=== PATIENT | male | born 1950 | race Caucasian/White ===

== ENCOUNTER 2016-07-24 07:31 | Inpatient (IN) ==
[2016-07-24 08:12] LABS: Basophils % 0.4 %; Eosinophils # 0.3 K/mcL (0.0-0.6); Eosinophils % 2.9 %; Hematocrit 40.3 % (37.5-50.1); Hemoglobin 13.4 g/dL (12.9-16.9); Immature Granulocytes % 0.4 % (0-4); Lymphocytes # 1.9 K/mcL (0.6-4.6); Lymphocytes % 17.8 %; Mean Corpuscular HGB Conc 33.3 g/dL (31.6-35.5); Mean Corpuscular Hemoglobin 28.2 pg (28.0-33.3); Mean Corpuscular Volume 84.7 fL (83.0-100.0); Mean Platelet Volume 9.9 fL (9.4-12.4); Monocytes # 0.8 K/mcL (0.0-1.3); Monocytes % 7.1 %; Neutrophils # 7.6 K/mcL (1.6-8.9); Platelet Count 204 K/mcL (140-400); Red Blood Count 4.76 M/mcL (4.19-5.50); Red Cell Distribution Width 13.6 % (11.5-14.5); Segmented Neutrophils % 71.4 %
[2016-07-24 08:27] LABS: BUN/Creatinine Ratio 15 (6-26); Blood Urea Nitrogen 18 mg/dL (8-26); Calcium 9.3 mg/dL (8.6-10.8); Carbon Dioxide 27 mEq/L (19-29); Chloride 98 mEq/L (98-109); Glucose 236 mg/dL (70-99); Osmolality,Calculated 290 (280-300); Potassium 4.4 mEq/L (3.5-4.5); Sodium 135 mEq/L (136-145); eGFR For African Americans > 60 (> 60); eGFR For Non-African Americans > 60 (> 60)
--- NOTE | 2016-07-24 08:38 | Emergency Department Note ---
START Narrative - START START: I examined this patient and my medical decision-making was reviewed with the CREAM DUMPER/PA/Advanced Practice Nurse/Resident Physician. I agree with the documented findings, disposition and treatment plan as described except to the extent set forth below. ED attending note: Patient seen with emergency medicine resident Dr. Sagastume. Please see a copy of his note for details of the H&P, evaluation, management and disposition of this patient. We independently had [id number] contact with the patient Briefly: A 66-year-old male increasing swelling of his legs and dyspnea on exertion left-sided chest pain and pressure. His HEART score, is at least 5 without a troponin back yet. EKG nonspecific changes chest is clear cardiac arrest some regular rate and rhythm his 2+ pitting edema. Patient will get labs including a troponin. Chest x-ray read by radiology as no acute process. Patient will likely be admitted for chest pain rule out acute coronary syndrome. 30 minutes critical care service this patient. Disposition pending.
--- NOTE | 2016-07-24 08:44 | Emergency Department Note ---
Disposition Clinical Impression: Shortness of breath, Weight gain Chest pain Qualifiers: Chest pain type: unspecified Qualified Code(s): R07.9 - Chest pain, unspecified Disposition: Admitted As Inpatient Condition: Good Referrals: Memo Tovar DO [Primary Care Provider] - Forms: ED Satisfaction Letter Time of Disposition: 10:15 General Adult HPI - General Chief complaint: ED Shortness of Breath/Dyspnea Stated complaint: Chest Pains/SOB/lumbar pain Time Seen by Provider: 07/24/16 07:46 Source: patient Limitations: no limitations Nursing Notes Reviewed: Yes Vital Signs Reviewed: Yes - History of Present Illness HPI Narrative: The patient presents to emergency department with chest pain that began last night. He is also stating that he has a 50 pound weight gain over the past 4 months. He states he notices it in his abdomen and his legs. He does have pitting edema to his knees. Started having shortness of breath yesterday and then start having chest pain last night. States this morning he woke up he was having chest pain and shortness of breath as well, warm second emergency department. Chest pain as an ache on the left side of his chest. Does have history of CABG. Pain Scale: 5 - Related Data Home Medications Medication Instructions Recorded Confirmed Aspirin/Dipyridamole 25/200 MG 1 cap PO TID 02/10/16 07/24/16 [Aggrenox 25mg-200mg] Docusate Sodium [Dok] 100 mg PO DAILY PRN 02/10/16 07/24/16 Gabapentin [Neurontin] 600 mg PO TID 02/10/16 07/24/16 Isosorbide MONOnitrate (24 HR) 30 mg PO DAILY 02/10/16 07/24/16 [Imdur] Metformin [Glucophage] 500 mg PO BIDWM 02/10/16 07/24/16 Metoprolol XL (24 HR) Succ [Toprol 25 mg PO DAILY 02/10/16 07/24/16 XL] Aspirin 81 mg PO DAILY 07/24/16 07/24/16 Atorvastatin [Lipitor] 40 mg PO HS 07/24/16 07/24/16 Budesonide/Formoterol 160/4.5 2 puff IH BIDR 07/24/16 07/24/16 [Symbicort 160/4.5] Diclofenac Sodium [Voltaren] 1 appl TP QID 07/24/16 07/24/16 Insulin Degludec [Tresiba 35 unit SQ DAILY 07/24/16 07/24/16 Flextouch U-100] Oxybutynin [Ditropan] 5 mg PO BID 07/24/16 07/24/16 Previous Rx's Medication Instructions Recorded HYDROcodone/Acet 5/325 mg [[place] 1 tab PO Q6H PRN #28 tab 02/10/16 5-325 mg] Allergies Allergy/AdvReac Type Severity Reaction Status Date / Time No Known Allergies Allergy Verified 02/10/16 07:55 All systems ED: reviewed and negative except as stated. Constitutional: Reports: chills (assosciated with chest pain). Denies: fever ENT ED: Denies: ear pain, throat pain Cardiovascular: Reports: chest pain (Began last night.), edema (2 bilateral lower legs.). Denies: palpitations, syncope Respiratory: Reports: dyspnea (For several days has gotten significantly worse since last night.). Denies: cough Gastrointestinal: Denies: abdominal pain, nausea, vomiting, diarrhea, hematemesis, melena, hematochezia Genitourinary: Denies: urgency, dysuria, frequency, hematuria Musculoskeletal: Denies: back pain, neck pain Integumentary: Denies: rash Neurological: Denies: headache, weakness Past Medical History - Past Medical History Attestation: Yes The following information was validated with the patient. Medical history: Reports: diabetes, hyperlipidemia, hypertension Psychiatric history: Reports: depression - Social History Smoking Status: Never smoker Smokeless Tobacco Status: No Alcohol use: Reports: none Drug use: Reports: none Physical Exam - General Limitations: no limitations General appearance: alert, in no apparent distress - Head Head exam: atraumatic, normocephalic - Eye Eye exam: Present: normal appearance, PERRL, EOMI. Absent: scleral icterus - ENT ENT exam: normal exam, normal oropharynx, mucous membranes moist - Neck Neck exam: Present: normal inspection, full ROM, trachea midline. Absent: tenderness, meningismus, lymphadenopathy - Chest Chest inspection: Present: normal inspection, symmetric chest wall rise. Absent : tenderness - Respiratory Respiratory exam: Present: normal lung sounds bilaterally. Absent: respiratory distress - Cardiovascular Cardiovascular exam: Present: regular rate, normal rhythm, normal heart sounds - Abdominal Exam Abdominal exam: Present: soft, Non-Tender, normal bowel sounds. Absent: rigidity, organomegaly, Soria's sign, Rovsing's sign, tenderness at McBurney's Point - Extremities Exam Extremities exam: Present: normal inspection, full ROM, normal capillary refill , pedal edema (Extending up to knees bilaterally..). Absent: tenderness, calf tenderness - Back Exam Back exam: Present: normal inspection, full ROM. Absent: tenderness, CVA tenderness (R), CVA tenderness (L) - Neurological Exam Neurological exam: Present: alert, oriented X3 - Psychiatric Psychiatric exam: Present: normal affect, normal mood - Skin Skin exam: Present: warm, dry, intact, normal color. Absent: rash, cyanosis, diaphoresis Course Course Narrative: Obese male patient presents the emergency department with a complaint of chest pain and shortness of breath. Patient is not appearing to be in any significant distress at this time. Patient states that his shortness of breath started yesterday during the day he attempted a warm shower with no relief. Later in the evening he started developing a left-sided aching chest pain. He denies any radiation. He denies any nausea or diarrhea but does have associated chills with this. Does have a history of a CABG in 2008. Patient states he sat a 50 pound weight gain over the past 4 months. He states that his blood sugars have recently been not under control. He states he had them under control for several months however the doctor changed him to a oral medication from Lantus and now he is ranging in the over 200s area. Patient has a significant cardiac history and concerning chest pain symptomology here. His labwork is grossly unremarkable with a slightly elevated BNP. His lung sounds are clear heart tones are normal. He drops into the low 80s on room air so we placed him on 2 L of oxygen. He does not generally wear oxygen. I am concerned for a new CHF versus a cardiac event. We will admit patient to the hospital. He is agreeable to this plan. - Consultations Consultation #1: Dr. Espinoza accepted patient in stable condition. Time: 09:36 Vital Signs Temperature 98.1 F 07/24/16 07:35 Pulse Rate 71 07/24/16 07:35 Respiratory Rate 16 07/24/16 07:35 Blood Pressure 176/94 07/24/16 07:35 O2 Sat by Pulse Oximetry 98 07/24/16 07:35 Temperature 98.1 F 07/24/16 07:35 Pulse Rate 92 07/24/16 10:30 Respiratory Rate 18 07/24/16 10:30 Blood Pressure 165/90 07/24/16 10:30 O2 Sat by Pulse Oximetry 95 07/24/16 10:30 Oxygen Delivery Oxygen Delivery Room Air Medical Decision Making - Medical Records Medical records reviewed: Yes I reviewed the patient's medical records. - Lab Data Lab results reviewed: Yes I reviewed the patient's lab results. Result diagrams: 07/24/16 08:06 07/24/16 08:06 Lab Results 07/24/16 07/24/16 07/24/16 Range/Units 08:06 08:06 08:06 WBC 10.7 (4.3-11.1) K/mcL RBC 4.76 (4.19-5.50) M/mcL Hgb 13.4 (12.9-16.9) g/dL Hct 40.3 (37.5-50.1) % MCV 84.7 (83.0-100.0) fL MCH 28.2 (28.0-33.3) pg MCHC 33.3 (31.6-35.5) g/dL RDW 13.6 (11.5-14.5) % Plt Count 204 (140-400) K/mcL MPV 9.9 (9.4-12.4) fL Immature Gran % 0.4 (0-4) % Seg Neutrophils % 71.4 % Lymphocytes % 17.8 % Monocytes % 7.1 % Eosinophils % 2.9 % Basophils % 0.4 % Neutrophils # 7.6 (1.6-8.9) K/mcL Lymphocytes # 1.9 (0.6-4.6) K/mcL Monocytes # 0.8 (0.0-1.3) K/mcL Eosinophils # 0.3 (0.0-0.6) K/mcL Basophils # 0.0 (0.0-0.2) K/mcL Sodium 135 L (136-145) mEq/L Potassium 4.4 (3.5-4.5) mEq/L Chloride 98 (98-109) mEq/L Carbon Dioxide 27 (19-29) mEq/L BUN 18 (8-26) mg/dL Creatinine 1.18 (0.72-1.25) mg/dL Est GFR ( Amer) > 60 (> 60) Est GFR (Non-Af Amer) > 60 (> 60) BUN/Creatinine Ratio 15 (6-26) Glucose 236 H (70-99) mg/dL Calculated Osmolality 290 (280-300) Calcium 9.3 (8.6-10.8) mg/dL Troponin I 0.01 (0-0.03) ng/mL B-Natriuretic Peptide (0-100) pg/mL 07/24/16 Range/Units 08:06 WBC (4.3-11.1) K/mcL RBC (4.19-5.50) M/mcL Hgb (12.9-16.9) g/dL Hct (37.5-50.1) % MCV (83.0-100.0) fL MCH (28.0-33.3) pg MCHC (31.6-35.5) g/dL RDW (11.5-14.5) % Plt Count (140-400) K/mcL MPV (9.4-12.4) fL Immature Gran % (0-4) % Seg Neutrophils % % Lymphocytes % % Monocytes % % Eosinophils % % Basophils % % Neutrophils # (1.6-8.9) K/mcL Lymphocytes # (0.6-4.6) K/mcL Monocytes # (0.0-1.3) K/mcL Eosinophils # (0.0-0.6) K/mcL Basophils # (0.0-0.2) K/mcL Sodium (136-145) mEq/L Potassium (3.5-4.5) mEq/L Chloride (98-109) mEq/L Carbon Dioxide (19-29) mEq/L BUN (8-26) mg/dL Creatinine (0.72-1.25) mg/dL Est GFR ( Amer) (> 60) Est GFR (Non-Af Amer) (> 60) BUN/Creatinine Ratio (6-26) Glucose (70-99) mg/dL Calculated Osmolality (280-300) Calcium (8.6-10.8) mg/dL Troponin I (0-0.03) ng/mL B-Natriuretic Peptide 318 H (0-100) pg/mL - Radiology Data Radiology results reviewed: Yes I reviewed the patient's radiology results. Chest X-Ray 07/24/16 07:47 IMPRESSION: No evidence of acute disease. D/ / Garry Andersen MD / Garry Andersen MD Interpreting Provider: Garry Andersen MD - EKG Data EKG #1 EKG attestation: Yes I reviewed and interpreted this EKG. EKG results narrative: Normal sinus rhythm at a rate of 68. ME interval is 185. Her station is 145. QT is 412. QTC is 429. Right bundle branch block. No signs of acute ischemia. No change from previous EKG dated 02/03/2016. Heart Score - Score History: Moderately Suspicious EKG: Non Specific repolarisation Disturbance Age: 45-65 Risk Factors: Equal/Greater than 3 risk factor or history of atherosclerotic disease Troponin: Less than normal limit HEART Score Total: 5
[2016-07-24] MEDS ORDERED: Furosemide 40 MG/4 ML VIAL IVP ONE (09:58)
--- NOTE | 2016-07-24 10:05 | Event Note ---
Date of Encounter: 07/24/16 Time of Encounter: 10:00 Patient seen and examined with nurse practitioner. 66-year-old male with a history of cabg in 2008 presents to the emergency room with shortness of breath and chest pain. Patient is an acute congestive heart failure. He is not on oxygen at home. Will start Lasix 40 mg IV twice daily. strict intake and output. He notices some pain in the left thigh and increased girth of left Lower extremity compared to right, so Venous Doppler will be performed to rule out DVT. He also has left pectoral chest pain. EKG shows right bundle branch block, no st segment shifts. Serial cardiac markers. Continuous telemetry monitoring. Continue home regimen for diabetes. A1 C in a.m. Patient this full code. inpatient admission.
[2016-07-24] MEDS ORDERED: Naloxone 0.4 MG/ML INJ IVP PRN (10:41)
--- NOTE | 2016-07-24 11:35 | Internal Med History&Physical ---
Date of Encounter: 07/24/16 Time of Encounter: 10:30 Assessment and Plan (1) Chest pain Current visit: Yes Status: Acute Assess: Patient presents with chest pain episodes x2 that was centered in left chest and non-radiating. Patient reports pain as pressure that lasted 2-3 minutes each time when lying down. Patient reports also becoming SOB during this episodes and continuing afterwards. Plan: Continuous cardiac monitoring ordered Repeat EKGs Continue aspirin Continue Aggrenox Continue Lipitor Continue Isosorbide Continue Metoprolol Trending troponins EV Echo ordered Cardiology consult ordered and confirmed with Dr. Bryant [place] precautions ordered Qualifiers: Chest pain type: unspecified Qualified Code(s): R07.9 - Chest pain, unspecified (2) Shortness of breath Current visit: Yes Status: Acute Assess: Patient presents with shortness of breath from probable CHF. Patient has 3+ pitting pedal edema bilaterally. Crackles in patient's lungs bilaterally in lower lobes. Plan: 40 mg Lasix IVP given in ED 40 mg Lasix IVP daily ordered Continue Symbicort Measure I & O daily Measure weight daily O2 2L ordered with titration if SpO2 <92% Monitor vital signs [place] precautions ordered (3) Weight gain Current visit: Yes Status: Acute Assess: Patient presents with unintended weight gain related to fluid overload from probable CHF. Patient has 3+ pitting pedal edema bilaterally. Crackles in patient's lungs bilaterally in lower lobes. Plan: 40 mg Lasix IVP given in ED 40 mg Lasix IVP daily ordered Measure I & O daily Measure weight daily (4) Hypertension Current visit: Yes Status: Acute Assess: Patient presents with history of chronic hypertension. Patient states that he does not have a way to check BP at home. Will have SW look into this. Plan: Continue Metoprolol Continue Lipitor Monitor BP and vitals Qualifiers: Hypertension type: essential hypertension Qualified Code(s): I10 - Essential (primary) hypertension (5) Hyperlipidemia Current visit: Yes Status: Acute Assess: Patient presents with history of chronic hyperlidemia. Plan: Continue Lipitor Lipid panel ordered Repeat labs ordered Qualifiers: Hyperlipidemia type: unspecified Qualified Code(s): E78.5 - Hyperlipidemia , unspecified (6) DVT prophylaxis Current visit: Yes Status: Acute Assess: Patient placed on DVT prophylaxis due to current chief complaint of chest pain, obesity, and sedentary nature related to shortness of breath. Plan: DVT prophylaxis ordered with 5000 units of heparin subcutaneous every 8 hours Monitor patient's vitals Internal Medicine - H&P: HPI Chief complaint: Chest pain, SOB Admitted From: Emergency Dept Plans for Post Hospital Care: Home History of present illness: Mr. Cooper is a 66 year old male who presents from the ED with chief complaint of chest pain and SOB. Mr. Cooper reports pain began last night with two episodes that lasted several minutes each time and was non-radiating pressure in his right chest. SOB accompanied these episodes and he continues to have the dyspnea. Patient has a history of quadruple bypass in 2008. Patient reports he has never had chest pain before this. Mr. Cooper also reports a 50 pound weight increase over the past 4 months. BNP was 318 on admission to ED. Patient has history of HTN, hyperlipidemia, and DM. She reports having carotid endarterectomy in 2008 to the right carotid. DM is managed with Metformin and Tresiba. Patient states blood glucose is not well-controlled since his physician switched him from Lantus to Tresiba. Lungs clear bilaterally and heart tones normal on exam. Patient to be admitted as inpatient. Cardiology consult ordered and confirmed with Dr. Bryant. Past Med Surg Social Fam HX - Past Medical History Source: patient Medical history: diabetes, hyperlipidemia, hypertension Psychiatric history: depression - Past Surgical History Surgical History: carotid endarterectomy (Right in 2008), coronary bypass (CABG ) (Quadruple), other (Amputation of left great toe due to DM in 06/2015; Right knee replacement in 2012) - Social History Smoking Status: Never smoker Smokeless Tobacco Status: No (Used chewing tobacco until 2008) Alcohol use: none Drug use: none Occupational status: retired Current living situation: Home Activity Level: Uses cane/walker Recent Out of Country Travel Within the Last 8 Weeks: No Exposure or Possible Exposure to Illness During Travel: No - Family History Father Living Status: Cause of : [place] Hx Family Cardiac Disorders: Yes Mother Living Status: Cause of : Cardiac related Hx Family Cardiac Disorders: Yes Daughter Brother Hx Family Cardiac Disorders: Yes (CaRD STENT) Internal Medicine - H&P: Meds Aspirin/Dipyridamole 25/200 MG [Aggrenox 25mg-200mg] 1 cap PO TID 02/10/16 [ History] Docusate Sodium [Dok] 100 mg PO DAILY PRN 02/10/16 [History] Gabapentin [Neurontin] 600 mg PO TID 02/10/16 [History] HYDROcodone/Acet 5/325 mg [[place] 5-325 mg] 1 tab PO Q6H PRN #28 tab 02/10/16 [Rx ] Isosorbide MONOnitrate (24 HR) [Imdur] 30 mg PO DAILY 02/10/16 [History] Metformin [Glucophage] 500 mg PO BIDWM 02/10/16 [History] Metoprolol XL (24 HR) Succ [Toprol XL] 25 mg PO DAILY 02/10/16 [History] Aspirin 81 mg PO DAILY 07/24/16 [History] Atorvastatin [Lipitor] 40 mg PO HS 07/24/16 [History] Budesonide/Formoterol 160/4.5 [Symbicort 160/4.5] 2 puff IH BIDR 07/24/16 [ History] Diclofenac Sodium [Voltaren] 1 appl TP QID 07/24/16 [History] Insulin Degludec [Tresiba Flextouch U-100] 35 unit SQ DAILY 07/24/16 [History] Oxybutynin [Ditropan] 5 mg PO BID 07/24/16 [History] Allergies No Known Allergies Allergy (Verified 02/10/16 07:55) All Systems PM: A 10-system review of systems was performed and is negative for pertinent findings except as documented above in the HPI. - Constitutional Constitutional: as per HPI, falls, weight gain Additional comments: Patient reports history of repeated falls over the past 9 months. Patient states that his "legs go out from under him". He states the numerous scabbed wounds are results of his falls. Patient also reports he has gained 50 pounds over the past 4 months for no reason. - EENT Eyes: as per HPI, change in vision, no discharge, no pain, no photophobia Additional comments: Patient states that he has had recent changes in vision that he is seeing a provider for. Ears: no ear discharge, no ear pain, no tinnitus Nose, mouth and throat: no dysphagia, no nasal discharge, no neck pain, no sore throat - Breasts Breasts: as per HPI - Cardiovascular Cardiovascular ROS IM: as per HPI, chest pain, dyspnea, no diaphoresis, no lightheadedness, no palpitations, no syncope - Respiratory Respiratory: as per HPI, dyspnea - Gastrointestinal Gastrointestinal: no abdominal pain, no diarrhea, no hematemesis, no hematochezia, no melena, no nausea, no vomiting - Genitourinary Genitourinary ROS male: as per HPI, urinary hesitancy Additional comments: Patient reports episodes of urinary frequency. He states he is seeing a provider for this who placed him on Oxybutinin. - Musculoskeletal Musculoskeletal ROS IM: as per HPI Additional comments: Patient states that he has been experiencing lower back pain and pain in his upper left thigh that he thought may be due to his sciatica. - Integumentary Integumentary IM: no rash, no unusual bruising - Neurological Neurological ROS: as per HPI, frequent falls - Psychiatric Psychiatric: as per HPI, abnormal sleep pattern Additional comments: Patient reports he wakes from sleep 5-6 times per night, sometimes due to need to urinate. - Endocrine Endocrine IM: as per HPI, polyuria Additional comments: Patient reports episodes of polyuria. - Hematologic/Lymphatic Hematologic/Lymphatic: no easy bruising - Allergic/Immunologic Allergic/Immunologic: as per HPI - Constitutional Vitals: Temp Pulse Resp BP Pulse Ox 98.1 F 92 18 165/90 95 07/24/16 07:35 07/24/16 10:30 07/24/16 10:30 07/24/16 10:30 07/24/16 10:30 General appearance: Present: cooperative, A&O X 3, pleasant, no acute distress, obese, answers questions appropriately - Head Head exam: Present: atraumatic, normocephalic - Eye Eye exam: Present: PERRL, conjuntiva pink, sclera anicteric Pupils: Present: PERRL - ENT ENT exam: Present: normal exam, normal external ear exam - Neck Neck exam general surgery: Present: supple, trachea midline. Absent: lymphadenopathy - Respiratory Respiratory exam: Present: CTAB. Absent: accessory muscle use, rales, rhonchi, wheezes - Cardiovascular Cardiovascular exam: Present: RRR, +S1, +S2. Absent: diastolic murmur, gallop, rubs, systolic murmur - GI/Abdominal GI/Abdominal exam: Present: normal bowel sounds, soft, no peritoneal signs. Absent: distended, tenderness - Rectal Rectal exam: Present: deferred - Additional comments: exam deferred. - Extremities Exam Extremities exam: Present: normal capillary refill, pedal edema, warm, radial pulses palpable and symetrical Additional comments: Patient reports pain in leg thigh as well as lower back pain on left side. - Back Exam Back exam: Present: normal inspection - Neurological Exam Neurological exam: Present: CN II-XII intact, oriented X3, no focal deficits. Absent: pronater drift, facial droop, speech deficit - Psychiatric Psychiatric exam: Present: normal affect, normal mood - Skin Skin exam: Present: abrasion, dry Additional comments: Patient's skin is dry and intact for the most part with the exception of scabbed abrasions resulting from frequent falls. Internal Med - H&P Results - Labs CBC & Chem 7: 07/24/16 08:06 07/24/16 08:06 Labs: Short CBC 07/24/16 Range/Units 08:06 WBC 10.7 (4.3-11.1) K/mcL Hgb 13.4 (12.9-16.9) g/dL Hct 40.3 (37.5-50.1) % Plt Count 204 (140-400) K/mcL Neutrophils # 7.6 (1.6-8.9) K/mcL BMP 07/24/16 08:06 Sodium 135 L Potassium 4.4 Chloride 98 Carbon Dioxide 27 BUN 18 Creatinine 1.18 Glucose 236 H Calcium 9.3 Cardiac Enzymes 07/24/16 Range/Units 08:06 Troponin I 0.01 (0-0.03) ng/mL - EKG Data EKG shows normal: sinus rhythm - EKG Data When compared to previous EKG: there is no significant change EKG comments: 07/24/16 11:52 EKG dated 02/03/16 shows sinus rhythm with right bundle branch block. EKG dated 07/24/16 shows sinus rhythm with right bundle branch block. - Impressions ITS Impressions Chest X-Ray 07/24/16 07:47 IMPRESSION: No evidence of acute disease. D/ / Garry Andersen MD / Garry Andersen MD Interpreting Provider: Garry Andersen MD - Diagnostic Studies Chest x-ray Additional comments: 2-View CXR dated 07/24/16 shows heart size and mediastinal contours are unchanged. Lungs are clear. No focal consolidation. There is no pleural effusion. There is ossification of the anterior longitudinal ligament. No evidence of acute disease.
[2016-07-24] MEDS: (Diclofenac Sodium [Voltaren] 1 APPL) TP SCH ×3 (13:09→21:07)
[2016-07-24] MEDS: *HR* HYDROcodone/Acet 5/325 mg TABLET PO PRN ×2 (15:05→21:28)
[2016-07-24] MEDS: *HR* Heparin 5,000 UNIT/ML VIAL SQ SCH ×2 (15:05→21:07)
[2016-07-24] MEDS: Gabapentin 300 MG CAPSULE PO SCH ×2 (15:05→21:08)
[2016-07-24] MEDS ORDERED: D5% in Water 1,000 ML IVC PRN ×2 (16:05→16:27)
[2016-07-24] MEDS ORDERED: *HR* Dextrose 50 % in Water (Syg) 50 ML SYRINGE IVP PRN ×2 (16:05→16:27)
[2016-07-24] MEDS ORDERED: Dextrose Gel 15 GM PO PRN ×4 (16:05→16:27)
[2016-07-24] MEDS: Insulin LISPRO 300 UNITS/3 ML VIAL SQ SCH ×2 (17:14→21:29)
--- NOTE | 2016-07-24 19:56 | Electrocardiograph Report ---
[address] [address] Test Date: 2016-07-24 Pat Name: Mario Cooper Department: 104 Room: 3B16 Gender: M Public Relations Representative: : 1950 Requested By: Sajan Groves Order Number: [id number] Reading MD: Robert Granados MD Measurements Intervals [place] Rate: 68 P: 23 ID: [id number] QRS: 80 QRSD: 145 T: 31 QT: 412 QTc: 429 Interpretive Statements SINUS RHYTHM RIGHT BUNDLE BRANCH BLOCK Electronically Signed On 07-24-2016 19:54:25 EDT by Robert Granados MD
[2016-07-24] MEDS ORDERED: Perflutren Lipid Microsphere 1.3 ML in 0.9 % Sodium Chloride 8.7 ML IVP ONE (20:50)
[2016-07-24] MEDS ORDERED: Insulin DETEMIR 100 UNIT/ML X5UNITS SQ SCH ×2 (21:00)
[2016-07-24] MEDS: Furosemide 40 MG/4 ML VIAL IVP SCH (21:07)
[2016-07-24] MEDS: Budesonide/Formoterol 160/4.5 MDI IH SCH (22:09)
[2016-07-25 02:03] LABS: Basophils % 0.4 %; Eosinophils # 0.3 K/mcL (0.0-0.6); Hematocrit 38.1 % (37.5-50.1); Hemoglobin 12.8 g/dL (12.9-16.9); Immature Granulocytes % 0.4 % (0-4); Lymphocytes # 1.8 K/mcL (0.6-4.6); Lymphocytes % 17.2 %; Mean Corpuscular HGB Conc 33.6 g/dL (31.6-35.5); Mean Corpuscular Hemoglobin 28.6 pg (28.0-33.3); Mean Corpuscular Volume 85.2 fL (83.0-100.0); Mean Platelet Volume 10.4 fL (9.4-12.4); Monocytes # 0.8 K/mcL (0.0-1.3); Monocytes % 7.7 %; Neutrophils # 7.5 K/mcL (1.6-8.9); Platelet Count 214 K/mcL (140-400); Red Blood Count 4.47 M/mcL (4.19-5.50); Red Cell Distribution Width 13.9 % (11.5-14.5); Segmented Neutrophils % 71.3 %
[2016-07-25 02:24] LABS: Alanine Aminotransferase 12 Units/L (0-55); Albumin 3.2 g/dL (3.5-5.0); Albumin/Globulin Ratio 0.8 (1.1-2.2); Alkaline Phosphatase 96 Units/L (38-126); Aspartate Amino Transferase 13 Units/L (5-34); BUN/Creatinine Ratio 18 (6-26); Bilirubin,Total 0.7 mg/dL (0.2-1.2); Blood Urea Nitrogen 20 mg/dL (8-26); Calcium 9.1 mg/dL (8.6-10.8); Carbon Dioxide 30 mEq/L (19-29); Chloride 95 mEq/L (98-109); Chol/HDL Ratio 6.7 (0-4.9); Cholesterol 182 mg/dL (< 200); Globulin 4.2 g/dL (2.4-3.5); Glucose 180 mg/dL (70-99); HDL Cholesterol 27 mg/dL (40-59); LDL Cholesterol,Calculated 122 mg/dL (0-99); Magnesium 1.6 mg/dL (1.6-2.6); Osmolality,Calculated 289 (280-300); Potassium 3.5 mEq/L (3.5-4.5); Sodium 136 mEq/L (136-145); Total Protein 7.4 g/dL (6.0-8.3); Triglycerides 165 mg/dL (< 150); eGFR For African Americans > 60 (> 60); eGFR For Non-African Americans > 60 (> 60)
[2016-07-25] MEDS: *HR* HYDROcodone/Acet 5/325 mg TABLET PO PRN ×3 (03:48→19:55)
[2016-07-25] MEDS: *HR* Heparin 5,000 UNIT/ML VIAL SQ SCH ×3 (06:21→21:46)
[2016-07-25] MEDS: Furosemide 40 MG/4 ML VIAL IVP SCH ×2 (08:56→19:56)
[2016-07-25] MEDS: Gabapentin 300 MG CAPSULE PO SCH ×3 (08:57→19:55)
[2016-07-25] MEDS: Aspirin 81 MG TAB.CHEW PO SCH (08:57)
[2016-07-25] MEDS: Metoprolol XL (24 HR) Succ 25 MG TAB.ER.24H PO SCH (08:58)
[2016-07-25] MEDS: Isosorbide MONOnitrate (24 HR) 30 MG TAB.ER.24H PO SCH (08:58)
[2016-07-25] MEDS: (Diclofenac Sodium [Voltaren] 1 APPL) TP SCH ×4 (08:59→20:03)
[2016-07-25] MEDS ORDERED: INSULIN DEGLUDEC 35 UNIT SQ SCH (09:00)
[2016-07-25] MEDS: Insulin LISPRO 300 UNITS/3 ML VIAL SQ SCH ×4 (09:01→20:37)
--- NOTE | 2016-07-25 09:57 | ECHO - Doppler Report ---
Echo with Imaging Enhancement Agent Name: Mario Cooper Date of Study: 07/24/2016 Date: 1950 Ht: 72.0 in Medical Record#: [id number] Age: 66 Wt: 284.0 lb Gender: Male BSA: 2.47 Order #: [id number] Location: [facility] Room #: 3B16 Reading Physician: Chanelle Tobin DO Transcription Typist: Qiana Sesay RDCS Ordering Physician: Quincy Huizar CNP Primary Physician: Memo Tovar DO Indications: Chest pain Impressions: Technically challenging study with suboptimal windows. Definity was used. LV systolic function is normal, EF 60-65%. RV is not well evaluated on this study. No valvular abnormalities by Doppler. Lack of TR gradient to estimate RVSP. Left Ventricular Wall Motion: Rest Echo Findings The mid inferior lateral and basal inferior lateral serra were not visualized. All other wall segments showed normal motion. Findings: Study Quality * Technically sub-optimal due to body habitus. Suboptimal Apical windows. ECG Findings * Normal sinus rhythm. Aortic Valve * No aortic regurgitation. * Aortic valve not well visualized. * No aortic stenosis. Mitral Valve * No mitral regurgitation. * Normal mitral valve structure. (see best on PLAX views) * No mitral stenosis. Left Atrium * Normal left atrial size. Tricuspid Valve * Tricuspid valve not well visualized. * No tricuspid regurgitation. Pulmonic Valve * Pulmonic valve is not well visualized. * No pulmonic stenosis. * No pulmonic regurgitation. Pulmonary Artery * Pulmonary artery not well visualized. Left Ventricle * Mild left ventricular diastolic dysfunction. * LVEF 60-65%. * Definity echo contrast was used. * Normal LV size. Right Atrium * Right atrium is not well visualized. Right Ventricle * Not well visualized. Interatrial Septum * Interatrial septum not well evaluated. IVC * The IVC is not well evaluated. Aorta * Normally sized aortic root. History Hypertension Diabetes Hypercholesteremia Family History of CAD History of CAD/PTCA Coronary Artery Bypass Graft Contrast: Definity 1.3 ml in 8.7 ml of saline 2 ml. Measurements: BP: 143/ 77 2D Normal Values RVIDd: 2.74 cm <2.7 cm IVSd: .90 cm 0.6 - 1.0 cm LVIDd: 5.51 cm 3.7 - 5.6 cm LVPWd: 1.08 cm 0.6 - 1.1 cm LVIDs: 4.73 cm 1.5 - 3.6 cm AO: 2.30 cm < 4.0 cm LA: 3.60 cm 2.0 - 4.0cm %FS: 14.20 cm >25 % LA volume: 46 Mitral Valve Peak E:.99 m/sec Peak A:.91 m/sec E/A Ratio:1.1 Peak E' Lat Elliot:7.62 cm/s Peak E' Med Elliot:5.55 cm/s E/E' Lat Ratio:13 E/E' Med Ratio:17.9 Updated by Chanelle Tobin on 07/25/2016 9:52:02 AM electronically signed on 07/25/2016 9:53:20 AM with status of Final Wall Motion Tony: 1=Normal, 2=Hypokinesis, 3=Akinesis, 4=Dyskinesis, 5=Aneurysmal, 6=Hyperkinetic, X=Not Visualized (Blank)=Missing
[2016-07-25] MEDS: Budesonide/Formoterol 160/4.5 MDI IH SCH ×2 (10:49→20:07)
--- NOTE | 2016-07-25 13:02 | Internal Med Progress Note ---
Date of Encounter: 07/25/16 Time of Encounter: 13:02 - Assessment and plan (1) Acute diastolic CHF (congestive heart failure) Current Visit: Yes Status: Acute Assessment and plan: BNP 318. CXR on admission clear, repeat CXR no acute processes Patient continues to have orthopnea with 2 bilateral piting edema ECHO noted . Continue IV lasix Continue I/O Daily weight checks Obtain stress test as patient continues to complain of pain Repeat EKG RBBB, no St segment changes Troponin negative X3 Cardiology evaluation appreciated (2) Chest pain Current Visit: Yes Status: Acute Assessment and plan: As above Qualifiers: Chest pain type: unspecified Qualified Code(s): R07.9 - Chest pain, unspecified (3) Hyperlipidemia Current Visit: Yes Status: Chronic Assessment and plan: Continue home meds Qualifiers: Hyperlipidemia type: unspecified Qualified Code(s): E78.5 - Hyperlipidemia , unspecified (4) Hypertension Current Visit: Yes Status: Chronic Assessment and plan: Continue home meds Qualifiers: Hypertension type: essential hypertension Qualified Code(s): I10 - Essential (primary) hypertension (5) CAD (coronary artery disease) Current Visit: Yes Status: Chronic Qualifiers: Coronary Disease-Associated Artery/Lesion type: [place] artery Qualified Code(s): I25.10 - Atherosclerotic heart disease of [place] coronary artery without angina pectoris - Subjective Interval history: 66 M Seen and evaluated at bedside Admitted for management of CHF exacerbation and Chest pain Patient has a PMH of Morbid Obesity, HTN, HLD, DM During evaluation at bedside, patient is seen being evaluated by cardiology He was sitting up in bed and complaining of chest pain and difficulty breathing Vitals were stable except for O2 level of 94% Patient has evidence of fluid overload with orthopnea, bilateral pitting pedal edema, JVD and elevated BNP. CXR repeated this morning is clear ECHO report shows EF 60-65%, no significant valvular disease. Suboptimal views despite definity. No wall motion abnormality seen. - Constitutional Vitals: Temp Pulse Resp BP Pulse Ox 97.7 F 69 16 117/71 93 07/25/16 11:47 07/25/16 11:47 07/25/16 11:47 07/25/16 11:47 07/25/16 11:47 General appearance: Present: cooperative, A&O X 3, pleasant, no acute distress, obese, answers questions appropriately - Head Head exam: Present: atraumatic, normocephalic - Eye Eye exam: Present: PERRL, conjuntiva pink, sclera anicteric Pupils: Present: PERRL - Neck Neck exam general surgery: Present: supple, trachea midline. Absent: lymphadenopathy - Respiratory Respiratory exam: Present: CTAB. Absent: accessory muscle use, rales, rhonchi, wheezes - Cardiovascular Cardiovascular exam: Present: RRR, +S1, +S2. Absent: diastolic murmur, gallop, rubs, systolic murmur - GI/Abdominal GI/Abdominal exam: Present: normal bowel sounds, soft, no peritoneal signs. Absent: distended, tenderness - Extremities Exam Extremities exam: Present: pedal edema (2+ pedal edema), warm, radial pulses palpable and symetrical. Absent: calf tenderness, cyanotic - Neurological Exam Neurological exam: Present: alert, CN II-XII intact, oriented X3, no focal deficits. Absent: pronater drift, facial droop, speech deficit - Skin Skin exam: Present: dry, intact Internal Medicine: Result - Labs CBC & Chem 7: 07/25/16 00:35 07/25/16 00:35 Labs: Short CBC 07/25/16 Range/Units 00:35 WBC 10.6 (4.3-11.1) K/mcL Hgb 12.8 L (12.9-16.9) g/dL Hct 38.1 (37.5-50.1) % Plt Count 214 (140-400) K/mcL Neutrophils # 7.5 (1.6-8.9) K/mcL BMP 07/25/16 00:35 Sodium 136 Potassium 3.5 Chloride 95 L Carbon Dioxide 30 H BUN 20 Creatinine 1.14 Glucose 180 H Calcium 9.1 Cardiac Enzymes 07/24/16 07/25/16 Range/Units 17:12 00:35 Troponin I 0.00 0.00 (0-0.03) ng/mL Liver Function 07/25/16 Range/Units 00:35 Total Bilirubin 0.7 (0.2-1.2) mg/dL AST 13 (5-34) Units/L ALT 12 (0-55) Units/L Alkaline Phosphatase 96 (38-126) Units/L Albumin 3.2 L (3.5-5.0) g/dL Consult Discharge Plan - Plan Referrals: Memo Tovar DO [Primary Care Provider] -
--- NOTE | 2016-07-25 15:30 | Cardiology Consult Note ---
Date of Encounter: 07/25/16 Time of Encounter: 15:27 Assessment and Plan (1) Acute diastolic CHF (congestive heart failure) Current Visit: Yes Status: Acute Acute diastolic CHF. Preserved EF on TTE. BNP 318. CXR with no acute abnormality. CXR being repeated d/t persistent SOB despite lasix. Significant edema in BLE noted. + orthopnea. Agree with IV lasix as tolerated. Strict I&O and daily weights. Low sodium diet. (2) CAD (coronary artery disease) Current Visit: Yes Status: Chronic H/o 4V CABG in 2008. No recent work-up. Will consider stress test during his stay. C/o chest pain. Continue asa, statin, and bb. Qualifiers: Coronary Disease-Associated Artery/Lesion type: [place] artery Qualified Code(s): I25.10 - Atherosclerotic heart disease of [place] coronary artery without angina pectoris (3) Chest pain Current Visit: Yes Status: Acute EKG shows Sr, RBBB, with no acute ST change. Troponin negative x 3. TTE demonstrates preserved EF. Stress test once euvolemic. Qualifiers: Chest pain type: unspecified Qualified Code(s): R07.9 - Chest pain, unspecified Discussion w patient/family: The assessment and plan as outlined above was discussed with the patient and/or family members who expressed understanding and agreement. All questions were answered. Thank you for involving us in the care of your patient. Please call with any questions. History of Present Illness Consult date: 07/25/16 Requesting physician: Fuad Patel Consult reason: CHF Chief complaint: SOB, BLE edema History of present illness: Mr. Cooper is a 66 year old male who presents with increasing SOB and BLE edema over the last week. He also c/o constant mid-sternal chest discomfort he describes as a "knot" in his chest. C/o occasional dizziness. He was admitted for acute CHF and cardiology was consulted. Past medical history significant for CABG x 4V in 2008, HTN, HLD, and diabetes. TTE completed during this admission shows EF 60-65%, no significant valvular disease. Suboptimal views despite definity. No wall motion abnormality seen. On my exam he continues to have SOB and chest discomfort. He also c/o increasing dizziness. B/p 98/52, HR 72, SPO2 89-94% on RA. Past Med Surg Social Fam HX - Past Medical History Attestation: Yes The following information was validated with the patient. Medical history: diabetes, hyperlipidemia, hypertension Psychiatric history: depression - Past Surgical History Surgical History: carotid endarterectomy (Right in 2008), coronary bypass (CABG ) (Quadruple), other (Amputation of left great toe due to DM in 06/2015; Right knee replacement in 2012) - Social History Smoking Status: Never smoker Smokeless Tobacco Status: No (Used chewing tobacco until 2008) Alcohol use: none Drug use: none - Family History Father Living Status: Cause of : SD Hx Family Cardiac Disorders: Yes Mother Living Status: Cause of : Cardiac related Hx Family Cardiac Disorders: Yes Daughter Brother Hx Family Cardiac Disorders: Yes (CaRD STENT) Medications and Allergies Aspirin/Dipyridamole 25/200 MG [Aggrenox 25mg-200mg] 1 cap PO TID 02/10/16 [ History] Docusate Sodium [Dok] 100 mg PO DAILY PRN 02/10/16 [History] Gabapentin [Neurontin] 600 mg PO TID 02/10/16 [History] HYDROcodone/Acet 5/325 mg [[place] 5-325 mg] 1 tab PO Q6H PRN #28 tab 02/10/16 [Rx ] Isosorbide MONOnitrate (24 HR) [Imdur] 30 mg PO DAILY 02/10/16 [History] Metformin [Glucophage] 500 mg PO BIDWM 02/10/16 [History] Metoprolol XL (24 HR) Succ [Toprol XL] 25 mg PO DAILY 02/10/16 [History] Aspirin 81 mg PO DAILY 07/24/16 [History] Atorvastatin [Lipitor] 40 mg PO HS 07/24/16 [History] Budesonide/Formoterol 160/4.5 [Symbicort 160/4.5] 2 puff IH BIDR 07/24/16 [ History] Diclofenac Sodium [Voltaren] 1 appl TP QID 07/24/16 [History] Insulin Degludec [Tresiba Flextouch U-100] 35 unit SQ DAILY 07/24/16 [History] Oxybutynin [Ditropan] 5 mg PO BID 07/24/16 [History] Allergies No Known Allergies Allergy (Verified 02/10/16 07:55) All Systems Review: A 10-system review of systems was performed and is negative for pertinent findings except as documented above in the HPI. Physical Examination Vital Signs, Last 4 Hours Temp Pulse Resp BP Pulse Ox 07/25/16 15:19 97.5 F L 71 16 99/52 91 07/25/16 13:33 97.4 F L 71 16 113/60 94 07/25/16 11:47 97.7 F 69 16 117/71 93 General: Conversant, Other (anxious, and restless) HEENT: Atraumatic, Normocephaly, Mucus Membranes Moist Neck: No JVD, Normal carotid pulses Cardiac: Reg Rate and Rhythm, Normal S1 and S2, No Murmur Lungs: Normal Breath Sounds, No Wheeze, Rales, Rhonchi, Other (lung sounds mildly diminished) Neuro: Alert and responsive, No focal deficits noted Abdomen: Soft, Non-Tender Skin: No rashes noted on visualized skin Musculoskeletal: No Chest Wall Tenderness Extremities: No Clubbing, No Cyanosis, Normal Pulses, Other (2+ BLE edema up to knees) Results 07/25/16 00:35 07/25/16 00:35 Lab Results 07/24/16 07/25/16 07/25/16 17:12 00:35 00:35 WBC 10.6 Hgb 12.8 L Hct 38.1 Plt Count 214 Sodium Potassium Chloride Carbon Dioxide BUN Creatinine Glucose Calcium Magnesium Total Bilirubin AST ALT Alkaline Phosphatase Troponin I 0.00 0.00 07/25/16 00:35 WBC Hgb Hct Plt Count Sodium 136 Potassium 3.5 Chloride 95 L Carbon Dioxide 30 H BUN 20 Creatinine 1.14 Glucose 180 H Calcium 9.1 Magnesium 1.6 Total Bilirubin 0.7 AST 13 ALT 12 Alkaline Phosphatase 96 Troponin I - Imaging and Cardiology Echo: report reviewed - EKG Interpretation EKG results cardiology: personally reviewed Consult Discharge Plan - Plan Referrals: Memo Tovar DO [Primary Care Provider] -
--- NOTE | 2016-07-25 16:25 | Venous Imaging Report ---
LE Venous Duplex Patient Name:Mario Cooper Order Number:[id number] Procedure Date:07/24/2016 Date:1950ge:66 yrs Gender:Male Location:[facility] [place] [facility] Room #: 02 Gallery Host:Rafita Vaz RN Referring MD:Quincy Huizar CNP machine riveter:DO Keith Man MD:Nik Phelan MD Primary Indications:R/O DVT Secondary Indications: Risk Factors Yes/No Smoking Current No Anticoagulants No Previous Vascular Surgery No Previous Vascular Surgery No Hx of DVT No Hx of Chemotherapy No Trauma to Veins No Recent Surgery No Hx of Superficial Phlebitis No Terrence Filter No Impressions: Normal bilateral lower extremity deep and superficial venous exam. Recommendations: Test completed on 07/24/2016 at 11:25:00 am. Critical findings reported to Dr Sajan Groves by phone at 12:10:00 pm on 07/24/2016 by Rafita Vaz RN. Findings Venous Duplex Results: Right: Venous imaging of the lower extremity reveals full patency and normal vessel compressibility of the right distal iliac, right common femoral, right superficial femoral, right popliteal, right posterior tibial, right peroneal, right great saphenous and right lesser saphenous. Doppler signals in the evaluated veins were normal. Left: Venous imaging of the lower extremity reveals full patency and normal vessel compressibility of the left distal iliac, left common femoral, left superficial femoral, left popliteal, left posterior tibial, left peroneal, left great saphenous and left lesser saphenous. Doppler signals in the evaluated veins were normal. Prior Study: No prior study available for comparison. Lower Extremity Venous Duplex Side Vein Compress Spontaneous Flow Augment Diameter (cm) Depth (cm) Right Distal Iliac Normal Yes Phasic Yes Right Common Femoral Normal Yes Phasic Yes Right Superficial Femoral Normal Yes Phasic Yes Right Popliteal Normal Yes Phasic Yes Right Posterior Tibial Normal Yes Phasic Yes Right Peroneal Normal Yes Phasic Yes Right Great Saphenous Normal Yes Phasic Yes Right Lesser Saphenous Normal Yes Phasic Yes Left Distal Iliac Normal Yes Phasic Yes Left Common Femoral Normal Yes Phasic Yes Left Superficial Femoral Normal Yes Phasic Yes Left Popliteal Normal Yes Phasic Yes Left Posterior Tibial Normal Yes Phasic Yes Left Peroneal Normal Yes Phasic Yes Left Great Saphenous Normal Yes Phasic Yes Left Lesser Saphenous Normal Yes Phasic Yes Updated by Nik Phelan MD on 07/25/2016 4:19:02 PM electronically signed on 07/25/2016 4:19:15 PM with status of Final
[2016-07-25] MEDS: Insulin DETEMIR 100 UNIT/ML X5UNITS SQ SCH (20:38)
[2016-07-26] MEDS: *HR* HYDROcodone/Acet 5/325 mg TABLET PO PRN ×2 (02:36→16:48)
[2016-07-26 05:28] LABS: Calcium 8.7 mg/dL (8.6-10.8); Potassium 4.1 mEq/L (3.5-4.5)
[2016-07-26] MEDS: *HR* Heparin 5,000 UNIT/ML VIAL SQ SCH ×3 (05:31→21:12)
[2016-07-26] MEDS: Budesonide/Formoterol 160/4.5 MDI IH SCH ×2 (07:44→19:43)
[2016-07-26] MEDS: Aspirin 81 MG TAB.CHEW PO SCH (08:48)
[2016-07-26] MEDS: Metoprolol XL (24 HR) Succ 25 MG TAB.ER.24H PO SCH (08:48)
[2016-07-26] MEDS: (Diclofenac Sodium [Voltaren] 1 APPL) TP SCH ×4 (08:48→21:08)
[2016-07-26] MEDS: Gabapentin 300 MG CAPSULE PO SCH ×3 (08:48→20:31)
[2016-07-26] MEDS: Isosorbide MONOnitrate (24 HR) 30 MG TAB.ER.24H PO SCH (08:48)
[2016-07-26] MEDS: Insulin LISPRO 300 UNITS/3 ML VIAL SQ SCH ×4 (08:49→21:11)
--- NOTE | 2016-07-26 09:48 | Internal Med Progress Note ---
Date of Encounter: 07/26/16 Time of Encounter: 09:45 - Assessment and plan (1) Acute diastolic CHF (congestive heart failure) Current Visit: Yes Status: Acute Assessment and plan: BNP 318. CXR on admission clear, repeat CXR no acute processes Edema has improved tod ay with lasix ECHO noted . Will hold lasix today due to JOYCE, will resume at lower dose when kidney function improved Continue I/O Daily weight checks Obtain stress test when euvolemic Troponin negative X3 Cardiology evaluation appreciated (2) Chest pain Current Visit: Yes Status: Acute Assessment and plan: As above Qualifiers: Chest pain type: unspecified Qualified Code(s): R07.9 - Chest pain, unspecified (3) Hyperlipidemia Current Visit: Yes Status: Chronic Assessment and plan: Continue home meds Qualifiers: Hyperlipidemia type: unspecified Qualified Code(s): E78.5 - Hyperlipidemia , unspecified (4) Hypertension Current Visit: Yes Status: Chronic Assessment and plan: Continue home meds Qualifiers: Hypertension type: essential hypertension Qualified Code(s): I10 - Essential (primary) hypertension (5) CAD (coronary artery disease) Current Visit: Yes Status: Chronic Assessment and plan: Chronic, stable, as in Chest pain Continue home meds Qualifiers: Coronary Disease-Associated Artery/Lesion type: [place] artery [place] vs. transplanted heart: [place] heart Associated angina: without angina Qualified Code(s): I25.10 - Atherosclerotic heart disease of [place] coronary artery without angina pectoris (6) JOYCE (acute kidney injury) Current Visit: Yes Status: Acute Assessment and plan: Send UA Send Renal USS Possibly pre-renal non-oliguir secondary to lasix Monitor I/O and electrolytes Avoid nephrotoxins - Subjective Interval history: 66 M Seen and evaluated at bedside Admitted for management of CHF exacerbation and Chest pain Patient has a PMH of Morbid Obesity, HTN, HLD, DM He denies new complains He has JOYCE today, lasix has been held He reported a hx of renal disease in the past Will check USS Cardiology eval noted and appreciated For stress test when patient is euvolemic - Constitutional Vitals: Temp Pulse Resp BP Pulse Ox 97.4 F L 73 16 105/66 94 07/26/16 06:57 07/26/16 06:57 07/26/16 07:44 07/26/16 06:57 07/26/16 07:44 General appearance: Present: cooperative, A&O X 3, pleasant, no acute distress, obese, answers questions appropriately - Head Head exam: Present: atraumatic, normocephalic - Eye Eye exam: Present: PERRL, conjuntiva pink, sclera anicteric Pupils: Present: PERRL - Neck Neck exam general surgery: Present: supple, trachea midline. Absent: lymphadenopathy - Respiratory Respiratory exam: Present: CTAB. Absent: accessory muscle use, rales, rhonchi, wheezes - Cardiovascular Cardiovascular exam: Present: RRR, +S1, +S2. Absent: diastolic murmur, gallop, rubs, systolic murmur - GI/Abdominal GI/Abdominal exam: Present: normal bowel sounds, soft, no peritoneal signs. Absent: distended, tenderness - Extremities Exam Extremities exam: Present: pedal edema (2+ edema, improved from yesterday), warm , radial pulses palpable and symetrical. Absent: calf tenderness, cyanotic - Neurological Exam Neurological exam: Present: alert, CN II-XII intact, oriented X3, no focal deficits. Absent: pronater drift, facial droop, speech deficit - Skin Skin exam: Present: dry, intact Internal Medicine: Result - Labs CBC & Chem 7: 07/25/16 00:35 07/26/16 04:56 Labs: BMP 07/26/16 04:56 Sodium 135 L Potassium 4.1 Chloride 96 L Carbon Dioxide 30 H BUN 35 H D Creatinine 1.48 H Glucose 157 H Calcium 8.7 - Impressions Impressions Chest X-Ray 07/25/16 14:18 IMPRESSION: Stable chest. No acute cardiopulmonary disease. D/ / Vazquez Sousa MD / Vazquez Sousa MD Interpreting Provider: Vazquez Sousa MD Consult Discharge Plan - Plan Referrals: Memo Tovar DO [Primary Care Provider] -
--- NOTE | 2016-07-26 18:15 | Electrocardiograph Report ---
[place] [id number] Test Date: 2016-07-25 Pat Name: Mario Cooper Department: 115 Room: 3B16 Gender: M Joy Loader: : 1950 Requested By: Fuad Patel Order Number: [id number] Reading MD: Robert Granados MD Measurements Intervals [place] Rate: 75 P: 8 LA: 187 QRS: 84 QRSD: 155 T: 81 QT: 418 QTc: 447 Interpretive Statements SINUS RHYTHM WITH OCCASIONAL VENTRICULAR PREMATURE COMPLEXES RIGHT BUNDLE BRANCH BLOCK Electronically Signed On 07-26-2016 18:13:45 EDT by Robert Granados MD
[2016-07-26 20:36] LABS: Bilirubin,Urine Negative (Negative); Blood,Urine Negative (Negative); Clarity,Urine Clear (Clear); Color,Urine Yellow (Yellow); Glucose,Urine (UA) Normal (Normal); Ketones,Urine Negative (Negative); Leukocyte Esterase,Urine Negative (Negative); Nitrite,Urine Negative (Negative); Protein,Urine Negative (Neg-Trace); Specific Gravity,Urine 1.015 (1.010-1.025); Urobilinogen,Urine Normal (Normal)
[2016-07-26] MEDS: Insulin DETEMIR 100 UNIT/ML X5UNITS SQ SCH (21:10)
[2016-07-27] MEDS: *HR* HYDROcodone/Acet 5/325 mg TABLET PO PRN ×3 (01:50→15:32)
[2016-07-27] MEDS: *HR* Heparin 5,000 UNIT/ML VIAL SQ SCH ×3 (05:34→21:48)
[2016-07-27 07:24] LABS: BUN/Creatinine Ratio 27 (6-26); Blood Urea Nitrogen 36 mg/dL (8-26); Calcium 9.2 mg/dL (8.6-10.8); Carbon Dioxide 24 mEq/L (19-29); Chloride 100 mEq/L (98-109); Glucose 183 mg/dL (70-99); Osmolality,Calculated 295 (280-300); Potassium 4.3 mEq/L (3.5-4.5); Sodium 136 mEq/L (136-145); eGFR For African Americans > 60 (> 60); eGFR For Non-African Americans 54 (> 60)
[2016-07-27] MEDS: Budesonide/Formoterol 160/4.5 MDI IH SCH ×2 (08:13→20:43)
[2016-07-27] MEDS: Isosorbide MONOnitrate (24 HR) 30 MG TAB.ER.24H PO SCH (08:48)
[2016-07-27] MEDS: Insulin LISPRO 300 UNITS/3 ML VIAL SQ SCH ×4 (08:48→21:49)
[2016-07-27] MEDS: Aspirin 81 MG TAB.CHEW PO SCH (08:48)
[2016-07-27] MEDS: Metoprolol XL (24 HR) Succ 25 MG TAB.ER.24H PO SCH (08:48)
[2016-07-27] MEDS: (Diclofenac Sodium [Voltaren] 1 APPL) TP SCH ×4 (08:48→21:41)
[2016-07-27] MEDS: Gabapentin 300 MG CAPSULE PO SCH ×3 (08:53→21:48)
--- NOTE | 2016-07-27 09:15 | Internal Med Progress Note ---
Date of Encounter: 07/27/16 Time of Encounter: 09:15 - Assessment and plan (1) Acute diastolic CHF (congestive heart failure) Current Visit: Yes Status: Acute Assessment and plan: BNP 318. CXR on admission clear, repeat CXR no acute processes Edema has improved tod ay with lasix ECHO noted . Lasix held 07/26 due to JOYCE Will restart po 40mg daily for now Continue I/O, positive fluid balance Daily weight checks Obtain stress test when euvolemic Troponin negative X3 Cardiology evaluation appreciated (2) Chest pain Current Visit: Yes Status: Acute Assessment and plan: As above Qualifiers: Chest pain type: unspecified Qualified Code(s): R07.9 - Chest pain, unspecified (3) Hyperlipidemia Current Visit: Yes Status: Chronic Assessment and plan: Continue home meds Qualifiers: Hyperlipidemia type: unspecified Qualified Code(s): E78.5 - Hyperlipidemia , unspecified (4) Hypertension Current Visit: Yes Status: Chronic Assessment and plan: Continue home meds Qualifiers: Hypertension type: essential hypertension Qualified Code(s): I10 - Essential (primary) hypertension (5) CAD (coronary artery disease) Current Visit: Yes Status: Chronic Assessment and plan: Chronic, stable, as in Chest pain Continue home meds Qualifiers: Coronary Disease-Associated Artery/Lesion type: [place] artery [place] vs. transplanted heart: [place] heart Associated angina: without angina Qualified Code(s): I25.10 - Atherosclerotic heart disease of [place] coronary artery without angina pectoris (6) JOYCE (acute kidney injury) Current Visit: Yes Status: Acute Assessment and plan: UA and Renal USS unremarkable Possibly pre-renal non-oliguir secondary to lasix Monitor I/O and electrolytes Avoid nephrotoxins - Subjective Interval history: 66 M Seen and evaluated at bedside Admitted for management of CHF exacerbation and Chest pain Patient has a PMH of Morbid Obesity, HTN, HLD, DM Hospital stay complicated by JOYCE due to lasix which was held 07/26 Retroperitoneal USS WNL UA -no proteinuria Will restart lasix po at lower dose , patient still has pedal edema and positive fluid balance Monitor Chem a.m Per Cardiology patient needs stress test when euvolemic prior to discharge - Constitutional Vitals: Temp Pulse Resp BP Pulse Ox 97.7 F 81 16 114/66 93 07/27/16 07:13 07/27/16 07:13 07/27/16 07:13 07/27/16 07:13 07/27/16 07:13 General appearance: Present: cooperative, A&O X 3, pleasant, no acute distress, obese, answers questions appropriately - Head Head exam: Present: atraumatic, normocephalic - Eye Eye exam: Present: PERRL, conjuntiva pink, sclera anicteric - Neck Neck exam general surgery: Present: supple, trachea midline. Absent: lymphadenopathy - Respiratory Respiratory exam: Present: CTAB. Absent: accessory muscle use, rales, rhonchi, wheezes - Cardiovascular Cardiovascular exam: Present: RRR, +S1, +S2. Absent: diastolic murmur, gallop, rubs, systolic murmur - GI/Abdominal GI/Abdominal exam: Present: normal bowel sounds, soft, no peritoneal signs. Absent: distended, tenderness - Extremities Exam Extremities exam: Present: pedal edema, warm, radial pulses palpable and symetrical. Absent: calf tenderness, cyanotic - Neurological Exam Neurological exam: Present: alert, CN II-XII intact, normal gait, oriented X3, no focal deficits. Absent: pronater drift, facial droop, speech deficit - Skin Skin exam: Present: dry, intact Internal Medicine: Result - Labs CBC & Chem 7: 07/25/16 00:35 07/27/16 06:21 Labs: BMP 07/27/16 06:21 Sodium 136 Potassium 4.3 Chloride 100 Carbon Dioxide 24 BUN 36 H Creatinine 1.33 H Glucose 183 H Calcium 9.2 Urine 07/26/16 Range/Units 20:25 Urine Color Yellow (Yellow) Urine Clarity Clear (Clear) Urine pH 6.0 (5.0-8.0) pH Units Ur Specific [place] 1.015 (1.010-1.025) Urine Protein Negative (Neg-Trace) mg/dL Urine Glucose (UA) Normal (Normal) mg/dL - Impressions Impressions Retroperitoneum Ultrasound 07/26/16 15:00 IMPRESSION: 1. No hydronephrosis. 2. No significant postvoid residual. 3. Gallstones. D/ / 07/26/2016 15:29:26 Yecenia Lopez MD / sg Interpreting Provider: Yecenia Lopez MD Consult Discharge Plan - Plan Referrals: Memo Tovar DO [Primary Care Provider] -
[2016-07-27] MEDS: Furosemide 40 MG TABLET PO SCH (11:27)
[2016-07-27] MEDS: Insulin DETEMIR 100 UNIT/ML X5UNITS SQ SCH (21:49)
[2016-07-28 04:13] LABS: BUN/Creatinine Ratio 23 (6-26); Blood Urea Nitrogen 32 mg/dL (8-26); Calcium 9.6 mg/dL (8.6-10.8); Carbon Dioxide 27 mEq/L (19-29); Chloride 99 mEq/L (98-109); Glucose 192 mg/dL (70-99); Osmolality,Calculated 294 (280-300); Potassium 4.8 mEq/L (3.5-4.5); Sodium 136 mEq/L (136-145); eGFR For African Americans > 60 (> 60); eGFR For Non-African Americans 52 (> 60)
[2016-07-28] MEDS: *HR* Heparin 5,000 UNIT/ML VIAL SQ SCH ×3 (06:28→21:17)
[2016-07-28] MEDS: Budesonide/Formoterol 160/4.5 MDI IH SCH ×2 (08:08→20:02)
[2016-07-28] MEDS: Aspirin 81 MG TAB.CHEW PO SCH (09:01)
[2016-07-28] MEDS: (Diclofenac Sodium [Voltaren] 1 APPL) TP SCH ×4 (09:01→21:23)
[2016-07-28] MEDS: Metoprolol XL (24 HR) Succ 25 MG TAB.ER.24H PO SCH (09:01)
[2016-07-28] MEDS: Isosorbide MONOnitrate (24 HR) 30 MG TAB.ER.24H PO SCH (09:01)
[2016-07-28] MEDS: Furosemide 40 MG TABLET PO SCH (09:01)
[2016-07-28] MEDS: Gabapentin 300 MG CAPSULE PO SCH ×3 (09:01→21:17)
[2016-07-28] MEDS: Insulin LISPRO 300 UNITS/3 ML VIAL SQ SCH ×4 (09:02→21:17)
[2016-07-28] MEDS: *HR* HYDROcodone/Acet 5/325 mg TABLET PO PRN (16:12)
--- NOTE | 2016-07-28 19:11 | Internal Med Progress Note ---
Date of Encounter: 07/28/16 Time of Encounter: 10:00 - Assessment and plan (1) Chest pain Current Visit: Yes Status: Acute Assessment and plan: Chest pain. he has a risk factor for ACS. 3 sets of troponin negative. The patient is pain-free now. Plan for stress test tomorrow. Qualifiers: Chest pain type: unspecified Qualified Code(s): R07.9 - Chest pain, unspecified (2) Shortness of breath Current Visit: Yes Status: Acute Assessment and plan: Improved after Lasix use. Echo shows LVEF 60-65%, considered diastolic CHF. Continue by mouth Lasix. (3) Hypertension Current Visit: Yes Status: Chronic Assessment and plan: Continue home meds Qualifiers: Hypertension type: essential hypertension Qualified Code(s): I10 - Essential (primary) hypertension (4) DVT prophylaxis Current Visit: Yes Status: Acute Assessment and plan: Heparin subcutaneously. (5) CAD (coronary artery disease) Current Visit: Yes Status: Chronic Assessment and plan: Chronic, stable, as in Chest pain Continue home meds Qualifiers: Coronary Disease-Associated Artery/Lesion type: [place] artery [place] vs. transplanted heart: [place] heart Associated angina: without angina Qualified Code(s): I25.10 - Atherosclerotic heart disease of [place] coronary artery without angina pectoris - Time Spent With Patient 25 - 35 minutes - Subjective Interval history: Patient is 66-year-old male admitted for chest pain and shortness of breath and CHF exacerbation. Past medical history is significant for diabetes and hypertension, hyperlipidemia. I saw and examined the patient today. He is awake alert, oriented 3. No shortness of breath or chest pain. Leg swelling improved significantly. We will continue current treatment and plan for stress test tomorrow. - Constitutional Vitals: Temp Pulse Resp BP Pulse Ox 97.5 F L 78 17 114/66 94 07/28/16 15:35 07/28/16 15:35 07/28/16 15:35 07/28/16 15:35 07/28/16 15:35 General appearance: Present: cooperative, A&O X 3, pleasant, no acute distress, obese, answers questions appropriately - Head Head exam: Present: atraumatic, normocephalic - Eye Eye exam: Present: PERRL, conjuntiva pink, sclera anicteric Pupils: Present: PERRL - Neck Neck exam general surgery: Present: supple, trachea midline. Absent: lymphadenopathy - Respiratory Respiratory exam: Present: CTAB. Absent: accessory muscle use, rales, rhonchi, wheezes - Cardiovascular Cardiovascular exam: Present: RRR, +S1, +S2. Absent: diastolic murmur, gallop, rubs, systolic murmur - GI/Abdominal GI/Abdominal exam: Present: normal bowel sounds, soft, no peritoneal signs. Absent: distended, tenderness - Extremities Exam Extremities exam: Present: pedal edema (mild pedal edema bilaterally), warm, radial pulses palpable and symetrical. Absent: calf tenderness, cyanotic - Neurological Exam Neurological exam: Present: CN II-XII intact, oriented X3, no focal deficits. Absent: pronater drift, facial droop, speech deficit - Skin Skin exam: Present: dry, intact Internal Medicine: Result - Labs CBC & Chem 7: 07/25/16 00:35 07/28/16 03:18 Labs: BMP 07/28/16 03:18 Sodium 136 Potassium 4.8 H Chloride 99 Carbon Dioxide 27 BUN 32 H Creatinine 1.37 H Glucose 192 H Calcium 9.6 Consult Discharge Plan - Plan Referrals: Memo Tovar DO [Primary Care Provider] - Tirso Bryant MD [Partnered Physician] - 08/21/16 3:45 pm
[2016-07-28] MEDS: Acetaminophen 325 MG TABLET PO PRN (19:27)
[2016-07-28] MEDS: Insulin DETEMIR 100 UNIT/ML X5UNITS SQ SCH (21:28)
[2016-07-29] MEDS: Acetaminophen 325 MG TABLET PO PRN (03:14)
[2016-07-29 04:27] LABS: Basophils # 0.1 K/mcL (0.0-0.2); Basophils % 0.5 %; Eosinophils # 0.3 K/mcL (0.0-0.6); Eosinophils % 3.3 %; Hematocrit 38.4 % (37.5-50.1); Hemoglobin 12.4 g/dL (12.9-16.9); Immature Granulocytes % 0.5 % (0-4); Lymphocytes # 2.4 K/mcL (0.6-4.6); Mean Corpuscular HGB Conc 32.3 g/dL (31.6-35.5); Mean Corpuscular Hemoglobin 27.7 pg (28.0-33.3); Mean Corpuscular Volume 85.9 fL (83.0-100.0); Mean Platelet Volume 9.8 fL (9.4-12.4); Monocytes # 0.7 K/mcL (0.0-1.3); Monocytes % 7.2 %; Platelet Count 215 K/mcL (140-400); Red Blood Count 4.47 M/mcL (4.19-5.50); Red Cell Distribution Width 14.1 % (11.5-14.5); Segmented Neutrophils % 63.5 %
[2016-07-29 04:45] LABS: Calcium 9.8 mg/dL (8.6-10.8); Potassium 4.5 mEq/L (3.5-4.5)
[2016-07-29] MEDS: *HR* Heparin 5,000 UNIT/ML VIAL SQ SCH (06:31)
[2016-07-29] MEDS: *HR* HYDROcodone/Acet 5/325 mg TABLET PO PRN (06:35)
[2016-07-29] MEDS: Insulin LISPRO 300 UNITS/3 ML VIAL SQ SCH ×2 (07:13→12:33)
[2016-07-29] MEDS: Budesonide/Formoterol 160/4.5 MDI IH SCH (07:51)
[2016-07-29] MEDS ORDERED: SUMAtriptan succinate 50 MG TABLET PO ONE ×2 (08:06)
[2016-07-29] MEDS ORDERED: 0.9 % Sodium Chloride 1,000 ML IVC SCH (08:15)
[2016-07-29] MEDS ORDERED: Regadenoson 0.4 MG/5 ML SYRINGE IVP ONE (08:37)
[2016-07-29] MEDS: (Diclofenac Sodium [Voltaren] 1 APPL) TP SCH ×2 (11:23→12:32)
[2016-07-29 11:32] VITALS: BP 156/75
[2016-07-29] MEDS: Metoprolol XL (24 HR) Succ 25 MG TAB.ER.24H PO SCH (11:37)
[2016-07-29] MEDS: Furosemide 40 MG TABLET PO SCH (11:37)
[2016-07-29] MEDS: Aspirin 81 MG TAB.CHEW PO SCH (11:37)
[2016-07-29] MEDS: Gabapentin 300 MG CAPSULE PO SCH (11:38)
[2016-07-29] MEDS: Isosorbide MONOnitrate (24 HR) 30 MG TAB.ER.24H PO SCH (11:38)
--- NOTE | 2016-07-29 11:56 | Nuclear Medicine Stress Report ---
Regadenoson Nuclear Stress Name: Mario Cooper Date of Study: 07/29/2016 Date: 1950 Ht: 72.0 in Medical Record#: [id number] Age: 66 Wt: 291.0 lb Gender: Male Order #: [id number] Location: [facility] Room: [facility] Supervising Provider: Monica Davis CNP Reading Physician: Tirso Bryant MD, [facility] Ordering Physician: Fuad Patel MD Primary Care Physician: Memo Tovar DO Stress Technologist: Juliann Clifford, TYPESETTING MACHINE OPERATOR/TENDER, CCT, CPFT Windows Security Analyst: Dean Hu Indications: Chest Pain Impression: No significant ECG changes with regadenoson. Gated LVEF = 64%. Perfusion imaging was negative for ischemia or infarct. History: Hypertension Diabetes Hypercholesteremia History of Coronary Artery Bypass Surgery Stress Test Summary: Stress Test Type: Pharmacologic Regadenoson 0.4mg/5ml given IV Baseline Information: Initial Heart Rate: 66 Blood Pressure: 120/80 Stress Information: Test Terminated Due to (primary): As per protocol Maximum Blood Pressure: 108/70 Maximum Heart Rate: 75 Percent Maximum Heart Rate Achieved: 48 Double Product: 8100 Symptoms: No chest symptoms Nuclear Summary: SPECT myocardial perfusion imaging using Tc99m Sestamibi given intravenously was performed at rest and following cardiac stress testing. The resting images were obtained following initial dose of 11.9 mCi. Following stress an additional dose of 35.3 mCi was given at peak exercise or 30 seconds post regadenoson infusion. Findings: Stress Note * Resting ECG demonstrated sinus rhythm with 1st degree AV block, RBBB. * No baseline arrhythmias were noted. * Patient had no chest pain during stress. * No arrhythmias were noted during stress. * No significant ECG changes with regadenoson. Hemodynamic responses * Normal hemodynamic responses to pharmacologic stress. Study Quality * Study quality was average. There is some patient motion and mild artifact noted in this study. Gated EF % * Gated LVEF = 64%. Left Ventricle * The left ventricle is not dilated. * Normal Segmental Perfusion in rest. * Normal segmental perfusion in stress. * There is some patient motion and mild artifact noted in this study. TID * No evidence of transient ischemic dilatation. Updated by Tirso Bryant MD, FACC on 07/29/2016 11:50:48 AM electronically signed on 07/29/2016 11:51:28 AM with status of Final
--- NOTE | 2016-07-29 13:19 | Discharge Summary ---
Date of Encounter: 07/29/16 Time of Encounter: 12:00 - Discharge Diagnosis (1) Chest pain Priority: Primary Status: Acute Qualifiers: Chest pain type: unspecified Qualified Code(s): R07.9 - Chest pain, unspecified (2) Shortness of breath Priority: Primary Status: Acute (3) Hypertension Priority: Secondary Status: Chronic Qualifiers: Hypertension type: essential hypertension Qualified Code(s): I10 - Essential (primary) hypertension (4) DVT prophylaxis Priority: Secondary Status: Acute (5) CAD (coronary artery disease) Priority: Secondary Status: Chronic Qualifiers: Coronary Disease-Associated Artery/Lesion type: [place] artery [place] vs. transplanted heart: [place] heart Associated angina: without angina Qualified Code(s): I25.10 - Atherosclerotic heart disease of [place] coronary artery without angina pectoris - Discharge Medications Prescriptions: Clopidogrel [Plavix] 75 mg PO DAILY #30 tablet Furosemide [Lasix] 20 mg PO DAILY #30 tablet SitaGLIPtin [Januvia] 25 mg PO DAILY #30 tablet Home Medications: Docusate Sodium [Dok] 100 mg PO DAILY PRN 02/10/16 [History] Gabapentin [Neurontin] 600 mg PO TID 02/10/16 [History] HYDROcodone/Acet 5/325 mg [[place] 5-325 mg] 1 tab PO Q6H PRN #28 tab 02/10/16 [Rx ] Isosorbide MONOnitrate (24 HR) [Imdur] 30 mg PO DAILY 02/10/16 [History] Metoprolol XL (24 HR) Succ [Toprol Xl] 25 mg PO DAILY 02/10/16 [History] Aspirin 81 mg PO DAILY 07/24/16 [History] Atorvastatin [Lipitor] 40 mg PO HS 07/24/16 [History] Budesonide/Formoterol 160/4.5 [Symbicort 160/4.5] 2 puff IH BIDR 07/24/16 [ History] Diclofenac Sodium [Voltaren] 1 appl TP QID 07/24/16 [History] Insulin Degludec [Tresiba Flextouch U-100] 35 unit SQ DAILY 07/24/16 [History] Oxybutynin [Ditropan] 5 mg PO BID 07/24/16 [History] Clopidogrel [Plavix] 75 mg PO DAILY #30 tablet 07/29/16 [Rx] Furosemide [Lasix] 20 mg PO DAILY #30 tablet 07/29/16 [Rx] SitaGLIPtin [Januvia] 25 mg PO DAILY #30 tablet 07/29/16 [Rx] Allergies/Adverse Reactions: Allergies No Known Allergies Allergy (Verified 02/10/16 07:55) Procedures/tests Complete & Pending: Procedures Performed prior 72 hours Category Date Time Status NM shawn perf SPECT multi [NM] Routine Exams 07/28/16 19:08 Taken Retroperitoneal Ultrasound - Complete [US Exams 07/26/16 15:00 Completed retroperitoneal comp] [US] Routine SP pharm nuclear stress Routine Y 07/29/16 08:00 Completed - Notes to Outpatient Provider 1. Pt has mild elevated Cr from his baseline (1.46 today), consider it is due to lasix use. His Cr is stable for 4 days, retroperineal US shows no hydronephrosis. Will maintain low po lasix upon discharge (20mg daily), please closely f/u renal function with PCP in one week. 2. His metformin is discontinued b/o renal function, he was prescribed Januvia 25mg po daily, continue home med Insulin Degludec. 3. Pt is on aggrenox, which he c/o headache after taking. Will d/c aggrenox and change to plavix. Date of admission: 07/24/16 11:50 Primary care physician: Memo Tovar DO Discharging clinician: Zara Doran Anticipated date of discharge: 07/29/16 - Patient Status Disposition: Home, Self-Care Condition: Good Functional capacity at discharge: independent ambulation Overall status at discharge: patient is back to baseline - Discharge Instructions Follow Up With: Tirso Bryant MD [Partnered Physician] - 08/21/16 3:45 pm Memo Tovar DO [Primary Care Provider] - 08/02/16 - Diet and Activity Activity: increase activity as tolerated Diet: diabetic diet Interval History: Mr. Cooper is a 66 year old male who presents from the ED with chief complaint of chest pain and SOB. Mr. Cooper reports pain began last night with two episodes that lasted several minutes each time and was non-radiating pressure in his right chest. SOB accompanied these episodes and he continues to have the dyspnea. Patient has a history of quadruple bypass in 2008. Patient reports he has never had chest pain before this. Mr. Cooper also reports a 50 pound weight increase over the past 4 months. BNP was 318 on admission to ED. Patient has history of HTN, hyperlipidemia, and DM. She reports having carotid endarterectomy in 2008 to the right carotid. DM is managed with Metformin and Tresiba. Patient states blood glucose is not well-controlled since his physician switched him from Lantus to Tresiba. Lungs clear bilaterally and heart tones normal on exam. Patient to be admitted as inpatient. Hospital course: Mr. Cooper is a 66 year old male admitted for chest pain and SOB, with b/l leg swelling. He was treated with lasix and SOB improved. Cardiology consult saw pt , consider diastolic CHF. Echo shows LVEF 60-65%. Pt is pain free and no further SOB after treatment. Had nuclear stress test which results negative. Will discharge pt home today. Pt was seen and examined. He is awake, alert, oriented x 3, no chest pain or SOB. Vitals stable. Pt has mild elevated Cr from his baseline (1.46 today), consider it is due to lasix use. His Cr is stable for 4 days, retroperineal US shows no hydronephrosis. Will maintain low po lasix upon discharge, closely f/u renal function with PCP. His metformin is discontinued b/o renal function, he was prescribed Januvia, continue home med Insulin Degludec. Pt is on aggrenox, which he c/o headache after taking. Will d/c aggrenox and change to plavix. Pt will schedule PCP visit in one week. - Time Spent with Patient Total time spent providing and/or coordinating discharge services: Greater than 30 minutes - Constitutional Vitals: Temp Pulse Resp BP Pulse Ox 96.6 F L 72 16 156/75 95 07/29/16 11:29 07/29/16 11:29 07/29/16 11:29 07/29/16 11:29 07/29/16 11:29 General appearance: Present: cooperative, A&O X 3, pleasant, no acute distress, obese, answers questions appropriately - Head Head exam: Present: atraumatic, normocephalic - Eye Eye exam: Present: PERRL, conjuntiva pink, sclera anicteric Pupils: Present: PERRL - Neck Neck exam general surgery: Present: supple, trachea midline. Absent: lymphadenopathy - Respiratory Respiratory exam: Present: CTAB. Absent: accessory muscle use, rales, rhonchi, wheezes - Cardiovascular Cardiovascular exam: Present: RRR, +S1, +S2. Absent: diastolic murmur, gallop, rubs, systolic murmur - GI/Abdominal GI/Abdominal exam: Present: normal bowel sounds, soft, no peritoneal signs. Absent: distended, tenderness - Extremities Exam Extremities exam: Present: warm, radial pulses palpable and symetrical. Absent : calf tenderness, cyanotic, pedal edema - Neurological Exam Neurological exam: Present: CN II-XII intact, oriented X3, no focal deficits. Absent: pronater drift, facial droop, speech deficit - Skin Skin exam: Present: dry, intact
--- NOTE | 2016-08-02 19:39 | Physician Discharge Referral ---
Home Health/Hosp Referral Info Transfer to: Home Health Provider in Charge Post Discharge: PCP - Diagnosis (1) Chest pain Status: Acute (2) Shortness of breath Status: Acute (3) Hypertension Status: Chronic (4) DVT prophylaxis Status: Acute (5) CAD (coronary artery disease) Status: Chronic - Respiratory Orders Smoking Cessation: Smoking cessation has been advised. For more information, call the [place] Tobacco Quit Line at 5-056-TLDE-NOW. - Services Needed Following services are medically necessary services: Nursing, Home Health Aide - Transfer Medications Prescriptions: Clopidogrel [Plavix] 75 mg PO DAILY #30 tablet Furosemide [Lasix] 20 mg PO DAILY #30 tablet SitaGLIPtin [Januvia] 25 mg PO DAILY #30 tablet Home Medications: Docusate Sodium [Dok] 100 mg PO DAILY PRN 02/10/16 [History] Gabapentin [Neurontin] 600 mg PO TID 02/10/16 [History] HYDROcodone/Acet 5/325 mg [[place] 5-325 mg] 1 tab PO Q6H PRN #28 tab 02/10/16 [Rx ] Isosorbide MONOnitrate (24 HR) [Imdur] 30 mg PO DAILY 02/10/16 [History] Metoprolol XL (24 HR) Succ [Toprol Xl] 25 mg PO DAILY 02/10/16 [History] Aspirin 81 mg PO DAILY 07/24/16 [History] Atorvastatin [Lipitor] 40 mg PO HS 07/24/16 [History] Budesonide/Formoterol 160/4.5 [Symbicort 160/4.5] 2 puff IH BIDR 07/24/16 [ History] Diclofenac Sodium [Voltaren] 1 appl TP QID 07/24/16 [History] Insulin Degludec [Tresiba Flextouch U-100] 35 unit SQ DAILY 07/24/16 [History] Oxybutynin [Ditropan] 5 mg PO BID 07/24/16 [History] Clopidogrel [Plavix] 75 mg PO DAILY #30 tablet 07/29/16 [Rx] Furosemide [Lasix] 20 mg PO DAILY #30 tablet 07/29/16 [Rx] SitaGLIPtin [Januvia] 25 mg PO DAILY #30 tablet 07/29/16 [Rx] Allergies/Adverse Reactions: Allergies No Known Allergies Allergy (Verified 02/10/16 07:55) Certification: Further, I certify that my clinical findings support that this patient is homebound (i.e. absences from home require considerable and taxing effort and are for medical reasons or [employer] services or infrequently or short duration when for other reasons) because: Homebound Reason: Patient requires assistance of a person or device to safely leave home Attestation: My signature below is to certify that this patient is under my care and that I, or nurse practitioner, or a physician's catering assistant working with me, has a face-to -face encounter with this patient.
== END 2016-07-29 14:29 | disposition home or self-care (01) | DRG 292 ==
LOC: EMEROO 07:31 → 3BNU 11:50 → OBSVTOIN 11:50 → SUATTDRO 11:50 → INTOOBSV 11:50 → 3BNU 12:24
PROVIDERS: ADMIT Internal Medicine; ATTEND Internal Medicine